=== PATIENT | female | born 1990 | race Caucasian/White ===

== ENCOUNTER 2023-02-10 08:24 | Inpatient (IN) ==
--- NOTE | 2023-01-26 13:40 | PAT Medication Instructions ---
Medication Instructions Date of Service January 26, 2023 Home Medications brinzolamide 1 %-brimonidine 0.2 % eye drops,suspension (Simbrinza) 1 drp ophthalmic (eye) TID buspirone 5 mg tablet 5 mg PO BID PRN Anxiety desvenlafaxine succinate 25 mg tablet,extended release 24 hr (Pristiq) 25 mg PO HS latanoprost (PF) 0.005 % eye drops 1 drp ophthalmic (eye) QPM netarsudil 0.02 % eye drops (Rhopressa) 1 drp ophthalmic (eye) HS Take morning of surgery With a small sip of water, OTHERWISE NOTHING TO EAT OR DRINK AFTER MIDNIGHT: brinzolamide 1 %-brimonidine 0.2 % eye drops,suspension (Simbrinza) 1 drp ophthalmic (eye) TID buspirone 5 mg tablet 5 mg PO BID PRN Anxiety (if needed) Take evening before surgery brinzolamide 1 %-brimonidine 0.2 % eye drops,suspension (Simbrinza) 1 drp ophthalmic (eye) TID buspirone 5 mg tablet 5 mg PO BID PRN Anxiety (if needed) desvenlafaxine succinate 25 mg tablet,extended release 24 hr (Pristiq) 25 mg PO HS latanoprost (PF) 0.005 % eye drops 1 drp ophthalmic (eye) QPM netarsudil 0.02 % eye drops (Rhopressa) 1 drp ophthalmic (eye) HS Other Notes If you have any questions please call us at [phone] or [phone] or [phone] or [phone]
--- NOTE | 2023-01-28 10:05 | Anesthesiology Consultation ---
Date of Service January 28, 2023 Assessment & Plan (1) Encounter for pre-operative examination: Plan - check urine test STAT am DOS. Chart Review Chart Review: Acceptable Risk for Surgery and Patient seen in Pre Admission Testing Teaching & Discussion Pre-Anesthesia Teaching/Discussion Notes: Instructed NPO after midnight before surgery, except medications with 15 cc of water. Medication instructions provided according to the PAT guidelines. History Surgery Operation Date: 02/10/23 10:30 Proposed Procedures p Total Abdominal Hysterectomy, Preserve the Ovaries - Herbert Bonilla MD Height/Weight Height: 5 ft Weight: 85.2 kg Allergies Allergy/AdvReac Type Severity Reaction Status Date / Time No Known Allergies Allergy Verified 01/26/23 12:19 Medications Home Medications Medication Instructions Recorded Confirmed Last Taken brinzolamide 1 %-brimonidine 0.2 % 1 drp ophthalmic (eye) TID 01/26/23 01/26/23 Unknown eye drops,suspension (Simbrinza) buspirone 5 mg tablet 5 mg PO BID PRN Anxiety 01/26/23 01/26/23 Unknown desvenlafaxine succinate 25 mg 25 mg PO HS 01/26/23 01/26/23 Unknown tablet,extended release 24 hr (Pristiq) latanoprost (PF) 0.005 % eye drops 1 drp ophthalmic (eye) QPM 01/26/23 01/26/23 Unknown netarsudil 0.02 % eye drops 1 drp ophthalmic (eye) HS 01/26/23 01/26/23 Unknown (Rhopressa) Past Medical History Medical History (Updated 01/28/23 @ 10:15 by Flor Duval PA-C) Glaucoma History of anxiety History of COVID-19 [facility] 11/14/2022, [facility] test, not hosp; body aches, cough, headache>resolved in 2 days Hx of renal calculi 2018 Patient denies h/o stroke, seizures, heart attack, heart failure, DM, HTN, blood clots or blood transfusions. Exercise / Class Metabolic Activity II 4-5 Yardwork/Stairs/Walk up hill (denies chest discomfort or shortness of breath with 1 FOS) Past Surgical History Surgical History (Updated 01/28/23 @ 10:16 by Flor Duval PA-C) History of esophagogastroduodenoscopy (EGD) History of surgical procedure on eye proper using laser to release pressure from eye History of wisdom tooth extraction Hx laparoscopic cholecystectomy Hx of section x2 w/vertical incisions Hx of lithotripsy Past Anesthesia History No Family Hx of Anesthesia Complications and Other (slow to wake, denies needing re-intubation) History of PONV No Hx of PONV and Hx of Motion Sickness Social History Smoking Status: Never smoker Do You Dip or Chew Tobacco: No Hx Alcohol Use: Yes alcohol intake frequency: other Alcohol Intake Frequency Comment: rarely Hx Substance Use: No substance use type: does not use Review of Systems Snoring, denies witnessed apneas. Patient denies chest pain, shortness of breath, dyspnea on exertion, reflux, fever, chills, cough, wheezing, or palpitations. Physical Exam Vital Signs Vitals BP 119/87 P 87 TEMP 98 SP02 98% on RA RESP 17 Physical Full cervical extension range of motion without pain TMD 3.5 finger breadths Mallampati Score 2 Dentition: intact, denies chipped or loose teeth, caps/crowns, implants or bridges Lungs: normal respiratory effort. Good air movement, clear throughout to auscultation, no adventitious breath sounds Cardiac: regular rate and rhythm, no murmurs noted Carotid arteries: negative bruit bilat Lab Results Anesthesia Preop Results Results Anesthesia Widget: WBC 6.43 K/ul (4.8-10.8) 01/28/23 Hgb 13.7 g/dl (12.0-16.0) 01/28/23 Hct 41.6 % (37.0-47.0) 01/28/23 Plt 276 K/uL (130-400) 01/28/23 Na 138 mmol/L (136-145) 01/28/23 K 3.9 mmol/L (3.5-5.1) 01/28/23 Cl 108 mmol/L (98-107) H 01/28/23 CO2 25 mmol/L (21-32) 01/28/23 BUN 9 mg/dl (6-23) 01/28/23 Creat 0.78 mg/dl (0.6-1.2) 01/28/23 Glucose Level 98 mg/dl (70-99(Fasting)) 01/28/23 PT 10.8 Seconds (9.0-12.0) 01/28/23 PTT 28.5 Seconds (21.0-31.0) 01/28/23 INR 1.0 (0.9-1.1) 01/28/23 Blood Type O Positive 01/28/23 Antibody Screen NEGATIVE 01/28/23 COVID-19 Risk Screen Screening Information COVID-19 Screen Date: 01/28/23 Exposure 21 Days Family/Household +COVID Last 21 Days: No Exposure 10 Days Any COVID Exposure Last 10 Days: No Symptoms Last 10 Days Experienced COVID Sx Last 10 Days: No + COVID 0-90 Days COVID + in Last 0-90 Days: No
--- NOTE | 2023-02-02 14:26 | History & Physical Report ---
Date of Service February 02, 2023 History of Present Illness Chief Complaint: Heavy vaginal bleeding with clotting. Severe pelvic pain Primary Care Provider: TYLER Woodruff Patient is a 32-year-old 1 para 1. She is on medications for anxiety. She has had a tubal ligation for control. She has had 2 sections. Her first section was a classical section at 28 weeks gestation. Her second section was a repeat with a tubal ligation. She has had 2 diagnostic laparoscopies. Both of the laparoscopies showed extensive endometriosis. Her periods are extremely heavy. She has a period every 28 to 30 days. They last 5 to 7 days. They are extremely 4 to 5 days. This is associated with clotting. And soaking over pad an hour. And bleeding through her clothes when she goes outside. The symptoms have been present for over 6 months and have been getting progressively worse. He also has pelvic pain which is manifest by severe cramps during her period. Painful intercourse. And actual pain when she is not having her period. The symptoms have been present for years and have been getting progressively worse. She has been diagnosed laparoscopically with extensive endometriosis. She is presently being scheduled for total abdominal hysterectomy. With present right preservation of ovaries if possible. Allergies Allergy/AdvReac Type Severity Reaction Status Date / Time No Known Allergies Allergy Verified 01/26/23 12:19 Home Medications Medication Instructions Recorded Confirmed Type brinzolamide 1 %-brimonidine 0.2 % 1 drp ophthalmic (eye) TID 01/26/23 01/26/23 History eye drops,suspension (Simbrinza) buspirone 5 mg tablet 5 mg PO BID PRN Anxiety 01/26/23 01/26/23 History desvenlafaxine succinate 25 mg 25 mg PO HS 01/26/23 01/26/23 History tablet,extended release 24 hr (Pristiq) latanoprost (PF) 0.005 % eye drops 1 drp ophthalmic (eye) QPM 01/26/23 01/26/23 History netarsudil 0.02 % eye drops 1 drp ophthalmic (eye) HS 01/26/23 01/26/23 History (Rhopressa) Past Med/Surg History Medical History (Updated 01/28/23 @ 10:15 by Flor Duval PA-C) Glaucoma History of anxiety History of COVID[facility], not hosp; body aches, cough, headache>resolved in 2 days Hx of renal calculi 2018 Surgical History (Updated 01/28/23 @ 10:16 by Flor Duval PA-C) History of esophagogastroduodenoscopy (EGD) History of surgical procedure on eye proper using laser to release pressure from eye History of wisdom tooth extraction Hx laparoscopic cholecystectomy Hx of section x2 w/vertical incisions Hx of lithotripsy Social History Smoking Status: Never smoker Second Hand Exposure: No; Do You Dip or Chew Tobacco: No; Hx Alcohol Use: Yes Hx Substance Use: No Preferred Language: Kiswahili Communication Ability: Effective 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 Alert oriented x3 in no acute distress. Eyes conjunctiva are pink sclera white. Ears had a normal light with light reflex bilaterally. Nose had a normal mucosa. Septum was midline. Lungs were clear to auscultation and percussion. Heart had a regular rhythm S1 and S2 were normal. Abdomen was soft and nontender. There is a well-healed midline incision. Pelvic exam revealed a normal-appearing cervix. Uterus was top normal size anteverted. Uterus was tender. Uterosacral ligaments were nodular and tender also. No adnexal masses appreciated. There was no calf tenderness. Impression of this case pelvic pain hypermenorrhea symptomatic endometriosis.
[~2023-02-10 08:24] MED LIST: ACETAMINOPHEN 1000 MG/100 ML IV IV ONE; LACTATED RINGER'S 1,000 ML IV SCH; LR 15ML/HR IV SCH; MIDAZOLAM HCL 1 MG/ML 2ML VIAL ONE; cefOXitin 2,000 MG in DEXTROSE 5% 50 ML IV SCH; fentaNYL citrate PF 100 MCG/2 ML VIAL ONE
--- NOTE | 2023-02-10 09:34 | History & Physical Bridge Note ---
Date of Service February 10, 2023 History & Physical Bridge Note I have examined the patient, reviewed the History & Physical and in the interval since the performance of the History & Physical I have noted the following changes of clinical significance: no changes noted
[2023-02-10] MEDS ORDERED: ONDANSETRON INJ 2 MG/ML 2 ML VIAL ONE (09:40)
[2023-02-10] MEDS ORDERED: PROPOFOL IV EMULSION 10 MG/ML 20 ML VIAL IV ONE (09:40)
[2023-02-10] MEDS ORDERED: LIDOCAINE 2% 2 ML VIAL/AMP(20MG/ML) INFIL ONE (09:40)
[2023-02-10] MEDS ORDERED: SUGAMMADEX SODIUM 200 MG/2 ML VIAL IV ONE (09:40)
[2023-02-10] MEDS ORDERED: ROCURONIUM BROMIDE 10 MG/ML 5 ML VIAL IV ONE (09:40)
[2023-02-10] MEDS ORDERED: DEXAMETHASONE SOD INJ 4 MG/ML VIAL ONE (09:40)
[2023-02-10] MEDS ORDERED: MoRPHine SULFATE PF 1 MG/ML 10 ML AMP/VIAL ONE (09:50)
[2023-02-10] MEDS ORDERED: MIDAZOLAM HCL 1 MG/ML 2ML VIAL ONE (09:51)
[2023-02-10] MEDS ORDERED: HEPARIN (PORCINE) 1000 UNIT/ML 10 ML (CATH LAB USE ONLY) ONE (10:11)
[2023-02-10] MEDS ORDERED: LACTATED RINGER'S 500 ML IV PRN (11:02)
[2023-02-10] MEDS ORDERED: diphenhydrAMINE 50 MG/ML VIAL IV PRN (11:02)
[2023-02-10] MEDS ORDERED: NALOXONE HCL 0.4 MG/1 ML VIAL/CARP IV PRN (11:02)
[2023-02-10] MEDS ORDERED: ePHEDrine sulfate 50 MG/ML AMP IV PRN (11:02)
[2023-02-10] MEDS ORDERED: HYDROmorphone INJ 0.5 MG/0.5 ML SYR IV PRN (11:02)
[2023-02-10] MEDS ORDERED: NALOXONE HCL 0.08 MG in SYRINGE 1.8 ML IV PRN (11:02)
[2023-02-10] MEDS ORDERED: MoRPHine SULFATE 2 MG/ML CARP IV PRN (11:02)
[2023-02-10] MEDS ORDERED: PROMETHAZINE HCL 25 MG in SODIUM CHLORIDE 0.9% 50 ML IV PRN (11:02)
[2023-02-10] MEDS ORDERED: ONDANSETRON INJ 2 MG/ML 2 ML VIAL IV PRN ×2 (11:02→19:09)
[2023-02-10] MEDS ORDERED: NALOXONE HCL 1 MG in SODIUM CHLORIDE 0.9% 1000ML 1,000 ML IV PRN (11:02)
[2023-02-10] MEDS ORDERED: MoRPHine SULFATE PF 1 MG/ML 10 ML AMP/VIAL INT SPINAL ONE (11:02)
[2023-02-10] MEDS ORDERED: KETOROLAC 30 MG/ML VIAL IV PRN ×2 (11:02→19:09)
[2023-02-10] MEDS ORDERED: MEPERIDINE HCL 25 MG/ML CARP/VIAL IV PRN (11:02)
[2023-02-10] MEDS ORDERED: NALBUPHINE HCL INJ 10 MG/ML AMP IV PRN (11:02)
[2023-02-10] MEDS ORDERED: SODIUM CHLORIDE 0.9% 1000ML 1,000 ML IV SCH (11:15)
[2023-02-10] MEDS ORDERED: NO NARCOTICS OR SEDATIVES SCH (11:15)
[2023-02-10] MEDS ORDERED: DC INTRASPINAL MORPHINE SCH (11:15)
[2023-02-10] MEDS ORDERED: PHENYLEPHRINE HCL 10 MG/ML VIAL ONE (11:16)
[2023-02-10] MEDS ORDERED: KETOROLAC 30 MG/ML VIAL ONE (12:52)
[2023-02-10] MEDS ORDERED: fentaNYL citrate PF 100 MCG/2 ML VIAL ONE (12:53)
[2023-02-10] MEDS ORDERED: SENNA 8.6 MG TAB PO PRN (13:08)
[2023-02-10] MEDS ORDERED: MAGNESIUM HYDROXIDE SUSP 30 ML UDC PO PRN (13:08)
[2023-02-10] MEDS ORDERED: bisacodyL 10 MG SUPP PR PRN (13:08)
--- NOTE | 2023-02-10 13:25 | Operative Report ---
Post Operative Report Procedure Date: February 10, 2023 Pre & Post Diagnosis: [] Preop diagnosis pelvic pain. Endometriosis. Postoperative diagnosis same Time Out: I identified the patient and participated in the time-out. Procedure: [] Procedure total abdominal hysterectomy suspension of vaginal cuff. Surgeon: [] Surgeon Dr. Bonilla Barkeep: [] Barkeep OR nurse Estimated Blood Loss: [] Estimated blood loss 100 mL Findings: [] Findings endometriosis. Absence of both fallopian tubes. Specimens [] Specimen uterus and cervix Description of Procedure: [] Patient was brought to the OR correctly identified by armband and conversation. Abdomen and vagina were prepped with Betadine solution. Patient was draped in the usual sterile manner. A Tillman catheter was inserted aseptically into the bladder connected to gravity drainage. Vaginal prep was done with Betadine. A timeout was called to identify the patient. Midline incisional scar was excised. Incision was carried down to the anterior fascia. Fascia was incised vertically. Peritoneum was carefully raised and entered. Omental adhesions to the anterior abdominal wall were taken down. An O'Hussein- O'Palomo self-retaining training retractor was inserted into the incision to provide adequate exposure. 4 laparotomy packs were used treatment to retract the intestines. The uterus was grasped with a double-tooth tenaculum. The round ligaments were clamped close to the fundus on both side. They were suture ligated with a transfixion suture of chromic catgut and tagged. An incision was made above the vesicouterine fold. The bladder was advanced out of the operative field. The ovarian ligament and stumps of the tube on either side were clamped close to the fundus. They were then clamped distally to this clamp. Cut free and then suture-ligated with a transfixion suture of chromic catgut the uterine vessels were skeletonized on both sides. They were clamped with a curved [place]. And then doubly ligated with a chromic gut tie. The cardinal ligaments were clamped by sliding off the cervix. This was done in 3 steps because of the length of the cardinal ligaments. They were cut with a stump and then suture ligated with a chromic gut tie and 3 steps. The vaginal cuff was entered with electric knife. The incision was carried around the cervix excising the surgical specimen uterus and cervix. The angles of the vaginal cuff were suture ligated to the stumps of the cardinal ligaments on both sides. The anterior and posterior vaginal gupta were approximated front to back at each ankle. The midportion of the vaginal cuff was whipstitched open with continuous interlocking suture of chromic catgut. A Sree drain with a safety pin was placed into the vaginal canal. The round ligaments were brought down and tied to the stumps of the cardinal ligaments on both the right and left side. This elevated the vaginal cuff. Following this peritonealized was done with a continuous Chromic Gut suture. This elevated the ovaries out of the cul-de-sac. A large part of the cul-de-sac had been obliterated due to en dometriosis. We washed the pelvis clean with normal saline. Hemostasis was excellent. We then did an anatomical approximation of the anterior abdominal wall. The peritoneum was approximated with a continuous Chromic Gut suture. The fascia was approximated with a PDS suture 1 suture anchored at the top of the defect. The other suture anchored at the bottom of the defect. And with wide lateral continuous bites the fascia was approximated from the top to the middle and the bottom to the middle. The 2 ends were then tied to each other. Subcutaneous tissue where it was irrigated. Then approximated with 2 layers of plain. Skin edges were approximated with staple clips. Patient tolerated procedure well. Left the OR in good condition. Attestation: I attest to the content of the Intraoperative Record and any orders documented therein. Any exceptions are noted below.
--- NOTE | 2023-02-10 13:27 | Post Operative Brief Note ---
Immediate Post Op Note v1 Date of Surgery February 10, 2023 Pre & Post Diagnosis Operation Date: 02/10/23 10:00 Pre-Op Diagnosis: Adenomyosis/Endometriosis, Heavy Painful Periods Post-Op Diagnosis: Adenomyosis/Endometriosis, Heavy Painful Periods I identified the patient and participated in the time-out.: Yes Procedure Operation Date: 02/10/23 10:00 Actual Procedures p Total Abdominal Hysterectomy with Preservation of the Bilateral Ovaries(Not Applicable) - Herbert Bonilla MD Surgeon Herbert Bonilla MD Dental Receptionist none Estimated Blood Loss 100 Findings Consistent with Post-Op Diagnosis endometriosis obilteration of cul de sac Drains Tillman Catheter and Sree Drain (Vagina with safety pin on end of drain) Complications none
--- NOTE | 2023-02-10 13:58 | Anesthesiology Progress Note ---
Date of Service February 10, 2023 Anesthesia Post Procedure Vital Signs Vital Signs: Temp Pulse Resp BP Pulse Ox O2 Del Method O2 Flow Rate 02/10/23 13:29 85 12 111/64 99 Oxymask 3 02/10/23 13:12 36.6 C 74 10 L 106/63 98 Oxymask 5 02/10/23 08:52 36.5 C 87 20 124/74 99 Room Air Transfer of Care Handoff Completed per policy Notes Mental Status: alert / awake / arousable and participated in evaluation Patient Amnestic to Procedure: Yes Nausea / Vomiting: adequately controlled Pain: adequately controlled Airway Patency, RR, SpO2: stable & adequate BP & HR: stable & adequate Hydration State: stable & adequate Neuraxial Anesthesia: was administered and sensory block is resolving Anesthetic Complications: no major complications apparent
[2023-02-10] MEDS: D5W AND LACTATED RINGERS 1,000 ML IV SCH ×2 (15:46→23:55)
[2023-02-10] MEDS: ONDANSETRON INJ 2 MG/ML 2 ML VIAL IV PRN (20:39)
[2023-02-11] MEDS ORDERED: MEPERIDINE HCL 50 MG/ML CARP IV PRN (05:03)
[2023-02-11] MEDS ORDERED: KETOROLAC 30 MG/ML VIAL IV PRN (05:03)
[2023-02-11] MEDS: IBUPROFEN 600 MG TAB PO PRN ×2 (05:35→16:41)
[2023-02-11 07:33] LABS: Hemoglobin 12.7 g/dl (12.0-16.0)
[2023-02-11] MEDS: D5W AND LACTATED RINGERS 1,000 ML IV SCH ×2 (07:42→18:14)
[2023-02-11 07:50] LABS: BUN Creatinine Ratio 10.7 (10-20); Calcium 9.2 mg/dl (8.6-10.3); Creatinine Clr Calc Pharmacy 104.2 ml/min; Est GFR (African American) 123.1 ml/min; Est GFR (Non-African American) 106.2 ml/min; Potassium 3.9 mmol/L (3.5-5.1)
--- NOTE | 2023-02-11 08:26 | Gynecologic Progress Note ---
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
[2023-02-11] MEDS: oxyCODONE/ACETAMINOPHEN 5mg/325mg TAB PO PRN (17:31)
[2023-02-12] MEDS: oxyCODONE/ACETAMINOPHEN 5mg/325mg TAB PO PRN ×2 (01:36→09:43)
[2023-02-12] MEDS: ONDANSETRON INJ 2 MG/ML 2 ML VIAL IV PRN (04:59)
[2023-02-12] MEDS: IBUPROFEN 600 MG TAB PO PRN (06:04)
[2023-02-12 07:11] LABS: BUN Creatinine Ratio 12.7 (10-20); Calcium 9.2 mg/dl (8.6-10.3); Est GFR (African American) 131.5 ml/min; Est GFR (Non-African American) 113.5 ml/min; Potassium 3.7 mmol/L (3.5-5.1)
--- NOTE | 2023-02-12 08:07 | Gynecologic Progress Note ---
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
--- NOTE | 2023-02-12 08:18 | Discharge Summary ---
Date of Service February 12, 2023 Admission HPI Per Admitting Provider Patient is a 32-year-old 1 para 1. She is on medications for anxiety. She has had a tubal ligation for control. She has had 2 sections. Her first section was a classical section at 28 weeks gestation. Her second section was a repeat with a tubal ligation. She has had 2 diagnostic laparoscopies. Both of the laparoscopies showed extensive endometriosis. Her periods are extremely heavy. She has a period every 28 to 30 days. They last 5 to 7 days. They are extremely 4 to 5 days. This is associated with clotting. And soaking over pad an hour. And bleeding through her clothes when she goes outside. The symptoms have been present for over 6 months and have been getting progressively worse. He also has pelvic pain which is manifest by severe cramps during her period. Painful intercourse. And actual pain when she is not having her period. The symptoms have been present for years and have been getting progressively worse. She has been diagnosed laparoscopically with extensive endometriosis. She is presently being scheduled for total abdominal hysterectomy. With present right preservation of ovaries if possible. Discharge Data Procedures Performed Operation Date: 02/10/23 10:00 Actual Procedures p Total Abdominal Hysterectomy with Preservation of the Bilateral Ovaries(Not Applicable) - Herbert Bonilla MD
--- NOTE | 2023-02-12 08:34 | Discharge Summary ---
Date of Service February 12, 2023 Admission HPI Per Admitting Provider Patient is a 32-year-old 1 para 1. She is on medications for anxiety. She has had a tubal ligation for control. She has had 2 sections. Her first section was a classical section at 28 weeks gestation. Her second section was a repeat with a tubal ligation. She has had 2 diagnostic laparoscopies. Both of the laparoscopies showed extensive endometriosis. Her periods are extremely heavy. She has a period every 28 to 30 days. They last 5 to 7 days. They are extremely 4 to 5 days. This is associated with clotting. And soaking over pad an hour. And bleeding through her clothes when she goes outside. The symptoms have been present for over 6 months and have been getting progressively worse. He also has pelvic pain which is manifest by severe cramps during her period. Painful intercourse. And actual pain when she is not having her period. The symptoms have been present for years and have been getting progressively worse. She has been diagnosed laparoscopically with extensive endometriosis. She is presently being scheduled for total abdominal hysterectomy. With present right preservation of ovaries if possible. Discharge Data Procedures Performed Operation Date: 02/10/23 10:00 Actual Procedures p Total Abdominal Hysterectomy with Preservation of the Bilateral Ovaries(Not Applicable) - Herbert Bonilla MD Hospital Course (1) Encounter for pre-operative examination: Yassine Martinez was admitted for total abdominal hysterectomy. The day of admission she was given prophylactic antibiotics. She was taken to the OR. A total abdominal hysterectomy with suspension of the vaginal cuff was performed. Blood loss was minimal. Postoperatively the patient did well. She remained afebrile throughout her entire postoperative course. Bowel sounds returned within 24 hours. Sree drain was removed from the vaginal cuff on the second postoperative day. At the time of discharge she was ambulating well. Her postoperative hemoglobin was 12.7. She was passing gas. Pain was well controlled with a combination of Motrin Tylenol and Percocet she was instructed to call the office if she had an elevated temperature. She was also instructed to return in 1 week for removal of ashleigh. Discharge Instructions Patient was instructed to call the office if she had a temperature over 100. She was instructed to call if she had heavy bleeding.
== END 2023-02-12 09:50 | disposition home or self-care (01) | DRG 743 ==
LOC: ASU 08:24 → 4E1 13:58